=== PATIENT | female | born 1955 | race Caucasian/White ===

== ENCOUNTER → 2019-04-04 11:09 | Outpatient (CLI) | payer OTHER, SELFPAY ==
--- NOTE | 2019-04-04 | DI.MG.S_ITS ---
BILATERAL DIGITAL SCREENING MAMMOGRAM 3D/2D WITH CAD: 04/04/2019 CLINICAL: Routine screening. Family history of breast cancer. Comparison is made to exams dated: 09/30/2010 mammogram and 06/04/2007 mammogram - [facility]. The tissue of both breasts is heterogeneously dense. This may lower the sensitivity of mammography. Current study was also evaluated with a Computer Aided Detection (CAD) system. No significant masses, calcifications, or other findings are seen in either breast. There has been no significant interval change. IMPRESSION: NEGATIVE There is no mammographic evidence of malignancy. A 1 year screening mammogram is recommended. This exam was interpreted at Station ID: [id number]. NOTE: For mammograms, a report in lay terms will be sent to the patient. Approximately 15% of breast malignancies will not be visualized mammographically. In the management of a palpable breast mass, a negative mammogram must not discourage biopsy of a clinically suspicious lesion. Electronically Signed By: Dell damon/kavita:04/04/2019 13:14:03 letter sent: Normal Exam ACR BI-RADS Category 1: Negative [id number]
== END ==
PROVIDERS: PCP Obstetrics & Gynecology; Visit Provider Family Medicine
DX: Z12.31 Encounter for screening mammogram for malignant neoplasm of breast (principal); Z80.3 Family history of malignant neoplasm of breast
CPT/HCPCS: 77063; 77067

== ENCOUNTER → 2022-02-01 12:05 | Outpatient (CLI) | payer OTHER, SELFPAY | PROVIDERS: PCP Family Medicine; Visit Provider Obstetrics & Gynecology | DX: Z87.440 Personal history of urinary (tract) infections (principal); R35.0 Frequency of micturition | CPT/HCPCS: 87086; 87147 ==

== ENCOUNTER 2024-12-11 08:48 | Day surgery (SDC) | payer MEDICARE, SELFPAY ==
[2024-12-03 15:04] VITALS: BMI 22.6
[2024-12-11] VITALS (14 sets, daily range): BP systolic 112–147; BP diastolic 59–94; PULSE 74–86; RESP 12–30; TEMP 36–36.6; O2SAT 94–100; BMI 22.6
--- NOTE | 2024-12-11 | PATH_ITS ---
[facility] Accession Number: [id number] No. of containers..01 Tissue . 01 Material submitted: . uterus - UTERUS, CERVIX, RIGHT FALLOPIAN TUBE AND OVARY . 01 Diagnosis: UTERUS, CERVIX, RIGHT FALLOPIAN TUBE AND OVARY, HYSTERECTOMY AND RIGHT SALPINGO-OOPHORECTOMY: Cervix: Chronic cervicitis and atrophic changes. Uterine corpus: Atrophic endometrium, adenomyoma (0.7 cm), and leiomyomas (up to 0.5 cm). Right ovary: Benign cortical inclusion cysts, otherwise unremarkable. Right fallopian tube: Benign paratubal cyst, otherwise unremarkable. Negative for malignancy. MR 12/18/2024 0912 Local . 01 Electronically signed: . Shi Browne DO, Pathologist NPI- [id number] . 01 Gross description: . Received in formalin labeled with two patient identifiers and uterus, cervix, right fallopian tube and ovary, and consists of a uterus with attached cervix and attached right adnexa. The uterine corpus measures 5.5 x 4.5 x 2.9 cm (63 grams), and has a santos-pink, smooth, glistening serosal surface. The right parametrial tissue is inked red, and the left parametrial tissue is inked blue. . The attached cervix measures 3.0 x 2.5 x 1.0 cm and has a diffusely hemorrhagic endocervical mucosa with a 0.4 cm slit-like patent os. In addition, there is a 2.0 x x 1.1 x 0.3 cm additional portion of vaginal mcuosa at the posterior cervical aspect. This vaginal mucosa is santos, wrinked, and otherwise unremarkable. The specimen is opened to show a triangular endocervical canal that is free of exophytic lesions. The myometrium is red-santos, homogenous, and mesures up to 1.7 cm in thickness. There are three white, whorled, well-circumscribed nodules ranging from 0.5 to 0.7 cm in greatest dimension. Sectioning of the myometrial nodules shows an unremarkable cut surface without areas of cystic change or necrosis. There is a 3.1 x 1.7 cm blood-tinged, triangular, endometrial lining with an average depth of 0.2 cm. The mucosa with finely granular and free of exophytic lesions or polyps. . The attached right ovary mesures 3.2 x 1.5 x 1.0 cm and is surfaced by a smooth, white, glistening serosal surface. Sectioning of the ovary shows a white, homogenous, fibrotic unremarkable cut surface. The accompanying fimbriated fallopian tube measures 3.2 cm in length by 0.5 cm in diameter, and has a smooth glistening serosal surface with a 0.2 cm in greatest dimension clear, simple, unilocular, smooth-walled paratubal cyst. Sectioning of the tube shows a 0.2 cm stellate lumen. . Human Resource Assistant sections are submitted as follows: A1: Posterior cervix to include vaginal cuff. A2: Anterior cervix. A3: Full thickness endomyometrium posterior wall. A4: Full thickness endomyometrium anterior wall. A5: Human Resource Assistant sections of myometrial nodules. A6: Right ovary. A7: Right fallopian tube to include entire fimbriated end. ([id number]) /MICHAEL 12/13/2024 2008 Local . 01 Pathologist provided ICD-10: N81.2 . 01 CPT . 232573 Specimen Comment: A courtesy copy of this report has been sent to [phone] Performed at: [address] [address], [place], [place] [id number] MD Dell Perez MD Phone: [phone]
--- NOTE | 2024-12-11 09:14 | PM.PREOP ---
Pre-operative Note COVID-19 COVID-19 status: Not tested Interval Note History & Physical reviewed/Exam performed by Physician: Yes Changes to H&P: No
[2024-12-11 09:19] LABS: Add Manual Diff / Slide Review NO; Hematocrit 42.2 % (36-46); Hemoglobin 14.2 g/dL (12.0-16.0); Lymphocytes Absolute Auto 2200 /uL (1100-4500); Mean Corpuscular HGB Conc 33.8 % (30-36); Mean Corpuscular Hemoglobin 31.3 PG (26-34); Mean Corpuscular Volume 92.7 fL (80-100); Platelet Count 338 X10^3/uL (150-400)
[2024-12-11] MEDS: ACETAMINOPHEN 325 MG TABLET 975 MG PO (09:20)
[2024-12-11] MEDS: GABAPENTIN 600 MG TABLET PO (09:20)
[2024-12-11] MEDS: SCOPOLAMINE 1 PATCH TOP (09:21)
[2024-12-11] MEDS: PYRIDOXINE (VITAMIN B6) 50 MG TABLET 25 MG PO (09:21)
[2024-12-11 09:31] LABS: Blood Urea Nitrogen 8 mg/dL (7-17); Calcium 9.4 mg/dL (8.4-10.2); Carbon Dioxide 23 mmol/L (22-32); Chloride 105 mmol/L (98-107); Estimated Glomerular Filt Rate > 60 mL/min (>60); Glucose 89 mg/dL (70-99); Potassium 4.2 mmol/L (3.4-5.1); Sodium 138 mmol/L (137-145)
[2024-12-11 09:37] LABS: HEMOLYSIS 103 (0-50)
[2024-12-11] MEDS: LACTATED RINGERS 1,000 ML 42 ML IV ×3 (09:40→15:12)
--- NOTE | 2024-12-11 10:35 | SUR.OPER ---
Lithotomy on padded OR bed. [place] Pad Positioner under torso. Head on pillow, arms padded and tucked at sides. Legs secured in padded yellow fins stirrups. Final position approved by Dr. Carver.
--- NOTE | 2024-12-11 15:41 | P.OP_ITS ---
Operative Date/Time/Diagnoses Date of procedure: 12/11/24 Time of procedure: 10:30 Pre-op diagnosis: Cystocele, stage II Rectocele stage I Uterovaginal prolapse, incomplete Stress urinary incontinence Post-op diagnosis: same Procedure & Clinicians Procedure: Procedures Operation Date: 12/11/24 10:00 Actual Procedure Side Surgeon p total laparoscopic hysterectomy with right salpingo-oophorectomy, uterosacral vault ligament suspension Right John Carver MD s Anterior/Posterior Repair John Carver MD s mid-urethral sling with cystoscopy John Carver MD Indications: Patient has been diagnosed with significant pelvic organ prolapse for which she has been using a Gellhorn pessary for several years. Although it provides support the patient is tired of using the pessary and has opted to proceed with pelvic organ prolapse correction surgery in the form of total laparoscopic hysterectomy with right salpingo-oophorectomy, laparoscopic uterosacral vault suspension, anterior and posterior colporrhaphy with mid urethral sling placement and cystoscopy. She presents today for her scheduled surgery. Surgeon: John Carver Manager Field Service: Pipo Nolasco Anesthesia Type: General Operative Notes Findings: Stage 2-3 cystocele, stage 1-2 uterovaginal prolapse, stage 1-2 rectocele. Patulous bladder due to chronic cystocele with no evidence of bladder injury during TVT placement. Both ureteral orifices are seen to be actively jetting clear urine at the completion of the surgery. Closure Type: primary Specimen(s): right tube & ovary and uterus Applied: catheter and other (Vaginal pack) Estimated blood loss (mL): 125 Blood products transfused: none Procedure in detail: With the patient under satisfactory general anesthesia in the modified dorsal lithotomy position, the perineum, vagina, and abdomen were prepped and draped in the usual manner for her scheduled surgery. A pre-surgical safety time-out was then taken in accordance with [facility] OR protocols. After insertion of a Landa catheter, a weighted speculum was placed in the vagina and the anterior vaginal wall carefully visualized. The location of the mid urethral Sybil established by palpation and Allis clamps were used to put the vaginal mucosa on tension. The mucosa and submucosal tissues the infiltrated with 0.5% Marcaine with epinephrine. A 2 cm longitudinal incision under the mid urethra was then made with a 15. Blade and the dissection carried bilaterally with Metzenbaum scissors. A tension-free vaginal tape in its sheath were placed 1st on the right and then the left exiting through small incisions in the suprapubic area. The Landa bulb was deflated, cystoscopy performed, and no evidence of bladder injury was seen. The Landa catheter was then replaced. The TVT was then passed retropubically on both sides and once correct tensioning or lack thereof was in effect, the sheaths were removed along with the needles. Final placement of the TVT showed that there was no tension underneath the urethra on either side and the 2 cm incision was closed with 3-0 catgut suture in a running interlocking stitch. A longitudinal incision of the anterior vaginal mucosa was then performed after infiltration with 0.5% Marcaine with epinephrine. The dissection was carried out bilaterally and a two-layer plication with 0 Vicryl was then performed of the bladder muscularis and pubis cervical fascia was. The redundant portion of mucosa was then removed with Metzenbaum scissors and the linear incision was then closed with 0 Vicryl interrupted stitches. Patient was repositioned and preparations made for laparoscopy. The umbilicus was infiltrated with 0.5% Marcaine with epinephrine and a 1 cm transverse subumbilical incision was made. Veress needle was used to insufflate the abdomen with carbon dioxide and once insufflated, a 5 mm laparoscopic port was placed through the incision into the abdominal cavity. Correct placement of the trocar was confirmed and the abdomen was insufflated with carbon dioxide at that point. Two additional 5 mm ports were placed 1st on the left and then the right mid quadrants using a similar technique. Patient was placed in Trendelenburg in the pelvis thoroughly visualized with the findings as noted above. The left adnexa was absent surgically and using PowerSeal device, the dissection was carried down left side coagulating and dividing the broad ligament down to the level of the bladder reflection where a bladder flap was created. The uterine vessels were skeletonized on the left side and coagulated then divided with the PowerSeal device. Attention was then turned to the right side where the ovary and tube were seem to be normal for the postmenopausal state. The tube and ovary were elevated and the PowerSeal device was used to coagulate and divide the infundibulopelvic ligament on the right side. The dissection was then carried across the mesosalpinx, down the broad ligament on the right side, where at the level of the bladder reflection, the bladder flap was completed. Vessels were skeletonized on the right side and coagulated/divided with the PowerSeal device. Monopolar cutting current was then used to perform colpotomy along the anterior and posterior portions of the VCare colpotomy cup. The specimen was then removed from the abdominal cavity through the vaginal canal and submitted as a pathologic specimen. The vaginal cuff was then closed with 0 Vicryl [id number] stitches through the vagina starting 1st on the left side and then going to the right side followed by the midline portion of the vaginal cuff. Hemostasis was excellent and cuff integrity was also excellent. At that point laparoscopy was resumed and using 2-0 PDS suture, a total of 4 stitches were placed to bring the vaginal cuff up to the intact portion uterosacral ligaments on both sides. Cuff support was excellent and there was no bleeding noted in the pelvis. Cystoscopy was again performed and active flow of urinary jets were seen coming from both ureteral meatus. The perineum and introitus were incised/excised with a jannet shape incision and the midline incision of the posterior vaginal wall was carried out following infiltration of those tissues with 0.5% Marcaine with epinephrine. The mucosa was undermined on both sides out laterally to the levators which were plicated with 2 layers of 0 Vicryl interrupted. Support of the back wall was well restored, the redundant portion of vaginal mucosa was excised, in the posterior vaginal wall incision was closed with 0 Vicryl in a running interlock ing stitch. The perineum and distal vagina were then closed in layers with oriental orthodox of perineal body height using 0 Vicryl suture. Vaginal pack was then placed. The laparoscopy incisions were then closed after venting of the pneumoperitoneum. Those incisions were closed with 4-0 Monocryl in inverted interrupted stitches and appropriate dressings were applied. Patient was then awakened from anesthesia and transferred to the PACU for a period of observation after having tolerated the procedure well. Complications: none Post-operative Condition: stable Disposition: PACU Plan for aftercare: Routine postoperative care with follow-up planned for 2 weeks postop
[2024-12-11] MEDS: KETOROLAC 30 MG/ML VIAL IV ×2 (16:51→23:44)
[2024-12-11] MEDS: ONDANSETRON 4 MG/2 ML INJ IV ×2 (16:51→20:48)
[2024-12-11] MEDS: LACTATED RINGERS 1,000 ML 100 ML IV (16:51)
[2024-12-11] MEDS: CYCLOBENZAPRINE 10 MG TABLET 5 MG PO ×2 (17:47→20:44)
[2024-12-11] MEDS: GABAPENTIN 300 MG CAPSULE PO (20:42)
[2024-12-11] MEDS: DOCUSATE 100 MG CAPSULE 200 MG PO (20:43)
[2024-12-11] MEDS: ACETAMINOPHEN 325 MG TABLET 650 MG PO ×2 (20:45→23:45)
[2024-12-11] MEDS: HYDROmorphone 2 MG/ML SYRINGE IV (20:53)
[2024-12-12] MEDS: ONDANSETRON 4 MG/2 ML INJ IV ×2 (00:15→05:14)
[2024-12-12] MEDS: LACTATED RINGERS 1,000 ML 100 ML IV (00:39)
[2024-12-12 05:00] VITALS: BP 130/70; PULSE 74; RESP 17; TEMP 37.1; O2SAT 98
[2024-12-12] MEDS: KETOROLAC 30 MG/ML VIAL IV (05:14)
[2024-12-12] MEDS: ACETAMINOPHEN 325 MG TABLET 650 MG PO (05:15)
[2024-12-12 06:05] LABS: Add Manual Diff / Slide Review NO; Hematocrit 33.0 % (36-46); Hemoglobin 11.2 g/dL (12.0-16.0); Lymphocytes Absolute Auto 1900 /uL (1100-4500); Mean Corpuscular HGB Conc 34.1 % (30-36); Mean Corpuscular Hemoglobin 31.7 PG (26-34); Mean Corpuscular Volume 93.0 fL (80-100); Platelet Count 250 X10^3/uL (150-400)
[2024-12-12 09:00] VITALS: BP 144/82; PULSE 91; RESP 20; TEMP 37.2; O2SAT 95
[2024-12-12] MEDS: DOCUSATE 100 MG CAPSULE 200 MG PO ×2 (10:04→20:04)
--- NOTE | 2024-12-12 11:25 | CM.DANOTE ---
DCP Assessment Note: Pt is a 69yo female, resident of [facility], is admitted s/p Total Lap Hysterectomy. Pt lives in a house with , Vel. Pt's Primary Care Provider is Dr. Dung Holliday and insurance is Medicare and AARP. Reviewed chart and discussed with multidisciplinary team pt's medical status and initial discharge needs. Per RN, no needs identified - just awaiting discharge orders. Plan: Anticipating dc home with spouse on 12/12 or when medically cleared. CM team will follow closely for coordination of discharge plans. Daphne Jaffe T[employer] DESK TEAM MEMBER Discharge Planning/Care Management CM Discharge Assessment Start: 12/11/24 15:51 Freq: Status: Active Protocol: Document 12/12/24 09:22 MW (Rec: 12/12/24 09:23 MW Desktop) Discharge Planning Assessment Assigned Discharge JOLENE Serna Supervisor Publications Provider Dr. Dung Holliday Insurance Medicare Insurance Comment AARP (Secondary) DPOA/Assigned Vel Solomon, Spouse Designee Name Contact Information [phone] Advance Directives? No History Provided By Patient,Medical Record Has Patient been No admitted in last 30 days? Prior Living House Arrangements Comment [facility] Household Members spouse Type of Drives own vehicle transporation used prior to admit Independent with ADL Yes 's Is patient alert and Yes oriented? Discharge Plan Home Transportation Spouse Arrangement Referrals Initiated None needed Review Status In Process Please Provide Date 12/12/24 Initial DC Assessment Was Performed Next Review Type Continued Stay Revie
[2024-12-12] MEDS: TAMSULOSIN 0.4 MG CAPSULE PO (13:32)
--- NOTE | 2024-12-12 14:48 | PC.NURSE ---
pt voided 200cc with residual of greater than 800cc attempted I/O staight cath with resistance stopped and placed a 16fr without difficulty greater than 1300 light yellow urine out, left causey in place and called Dr. Carver. Plan for him to come up and see pt.
--- NOTE | 2024-12-12 15:16 | P.PN_ITS ---
Subjective Subjective Date Patient Seen: 12/12/24 Time Patient Seen: 15:16 Exam Vital Signs (past 8 hours): - 12/12/24 09:00 Temperature 99.0 F Pulse Rate 91 H Respiratory Rate 20 Blood Pressure 144/82 H Pulse Oximetry 95 Oxygen Flow Rate 0 Oxygen Delivery Method Room Air Oxygen Flow Rate 0 Const General: cooperative and comfortable Nutritional Appearance: average body habitus Orientation: alert and oriented x3 HENMT Head: normal to inspection, atraumatic and abrasion Ears: hearing grossly normal bilaterally Face and sinus: face symmetric Eyes General: appearance normal, both eyes and all related structures Conjunctivae: conjunctivae normal Sclera: sclerae normal EOM: EOM intact bilaterally Neck Neck: normal visual inspection Resp Effort & Inspection: normal respiratory effort and able to speak in complete sentences Auscultation: clear to auscultation bilaterally Cardio Rate: regular rate Rhythm: regular rhythm Heart Sounds: S1 normal, S2 normal and no murmurs GI Inspection: normal to inspection and incision (Surgical dressings clean and dry) Palpation: soft, no hepatosplenomegaly and tender (Mild, diffuse postsurgical tenderness) Auscultation: hypoactive bowel sounds External Female Exam: other (No significant bleeding noted) Extrem General: no calf tenderness Psych Appearance: grossly normal Mental Status: mental status grossly normal Speech and Movement: speech and movement normal Mood: congruent mood Affect: normal affect Attitude: cooperative Thought Process: normal Thought Content: normal Judgment: judgment good Objective Labs 12/12/24 05:59 12/10/24 09:15 Labs: Laboratory Results - last 24 hr 12/12/24 05:59 WBC 12.4 H D RBC 3.55 L Hgb 11.2 L Hct 33.0 L MCV 93.0 MCH 31.7 MCHC 34.1 RDW 13.6 Plt Count 250 Neut % (Auto) 75.9 H Lymph % (Auto) 14.9 L Liberty % (Auto) 8.6 Eos % (Auto) 0.1 L Baso % (Auto) 0.5 Neut # (Auto) 9400 H Lymph # (Auto) 1900 [place] # (Auto) 1100 H Eos # (Auto) 0 Baso # (Auto) 100 PFSH Medical History (Updated 11/08/24 @ 00:00 by ) Hearing loss Rosacea (~1999) Actinic keratosis (~2014) Post herpetic neuralgia (~2000) Mild cognitive disorder (~2020) Back pain (~2010) Ankle fracture (~2015) Measles Chicken pox (~1959) Early menopause Ovarian cyst (~2004) Hypertension (~2008) Hemorrhoids (~2004) Surgical History (Updated 02/16/22 @ 19:44 by Shikha Deshpande) Anesthesia Hx of removal of ovary (~2004) History of back surgery (~2014) Family History (Updated 02/16/22 @ 19:46 by Shikha Deshpande) Father No problems noted. Mother Cancer Grandmother Cancer Grandmother Parkinson's disease Social History household members: spouse Smoking Status: Never smoker alcohol intake: former Assessment & Plan Post-op Postoperative Procedures: Procedures Operation Date: 12/11/24 10:00 Actual Procedure Side Surgeon p total laparoscopic hysterectomy with right salpingo-oophorectomy, uterosacral vault ligament suspension Right John Carver MD s Anterior/Posterior Repair John Carver MD s mid-urethral sling with cystoscopy John Carver MD Postoperative day: 1 Postoperative status: doing well and urinary retention Postoperative status narrative: Patient did reasonably well overnight and catheter removed along with vaginal pack late morning. Patient able to void 200 cc but initial postvoid residual was measured at 700 cc. Catheter placed subsequently and 1300 cc of clear urine obtained. Will leave catheter in overnight again in attempt removal/trial of voiding tomorrow morning. Postoperative plan: routine post-op care and see orders Postoperative plan narrative: Catheter replaced and will give a trial of voiding again in the morning in hopes she is able to void spontaneously. In addition will add Flomax and bethanechol overnight in preparation for her 2nd voiding trial. Time Spent With Patient Time with patient: 15-24 minutes Quality VTE Deep Vein Thrombosis/Pulmonary Embolism Present on Admission: No
[2024-12-12] MEDS: BETHANECHOL CHLORIDE 5 MG TABLET PO ×2 (16:31→20:05)
[2024-12-12 19:00] VITALS: BP 142/75; PULSE 82; RESP 18; TEMP 37.1; O2SAT 92
[2024-12-12] MEDS: CYCLOBENZAPRINE 10 MG TABLET 5 MG PO (20:04)
[2024-12-12] MEDS: GABAPENTIN 300 MG CAPSULE PO (20:05)
[2024-12-13] MEDS: BETHANECHOL CHLORIDE 5 MG TABLET PO ×2 (04:00→08:52)
[2024-12-13] MEDS: CYCLOBENZAPRINE 10 MG TABLET 5 MG PO ×2 (04:01→13:03)
[2024-12-13 08:00] VITALS: BP 149/76; PULSE 70; RESP 15; TEMP 36.9; O2SAT 97
[2024-12-13] MEDS: TAMSULOSIN 0.4 MG CAPSULE PO (08:51)
[2024-12-13] MEDS: DOCUSATE 100 MG CAPSULE 200 MG PO (08:52)
--- NOTE | 2024-12-13 10:33 | CM.DPNOTE ---
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 Landa dc'd, pending voiding should dc today. no CM needs likely P: dc today home with family support and OP f/u. no CM needs at this time will continue to follow in case any should arise JOLENE Rios
--- NOTE | 2024-12-13 12:37 | P.DS_ITS ---
History of Present Illness History of Present Illness Date Patient Seen: 12/13/24 Time Patient Seen: 12:37 Chief complaint: Lap Total Hysterectomy Robot Assisted Discharge Providers Provider Date of admission: 12/11/2024 Discharge Date: 12/13/24 Primary care physician: Dung Holliday MD Discharge provider: John Carver MD Summary Hospital Course Discharge Diagnosis: Cystocele, stage II Rectocele stage I-II Uterovaginal prolapse, incomplete, Stress urinary incontinence Postop Urinary retention Status post total laparoscopic hysterectomy with laparoscopic uterosacral vault suspension, anterior and posterior repair, mid urethral sling placement with cystoscopy Hospital Course: Vicky was admitted on 12/11/2024 and underwent an uneventful total laparoscopic hysterectomy with right salpingo oophorectomy, laparoscopic uterosacral ligament vault suspension, anterior and posterior repair, and mid urethral sling placement with cystoscopy. Full details of the procedure well summarized on my operative note of that date. Following surgery she has done extremely well with prompt return of bowel function, she is ambulating independently, tolerating a regular diet, and her pain is well-controlled with oral pain medications. Unfortunately a trial of voiding was unsuccessful on the 1st postoperative day and she required a 2nd night in the hospital. A 2nd voiding trial was successful with a postvoid residual of less than 150 cc. She will be discharged at this time to home in an afebrile normotensive condition after counseling regarding precautionary symptoms, limitations of activity, medications, and plans for follow-up which will be in 2 weeks or as needed. Medications at discharge will include oxycodone 5 mg every 4-6 hours as needed for pain, dispense 15 with no refills, Cipro 500 mg p.o. b.i.d. x5 days for UTI prophylaxis following catheterization, Flomax 0.4 mg b.i.d. times 10 days, and bethanechol 5 mg b.i.d. times 10 days. She was also discharged with at [facility] catheter supplies and instructions should she have difficulty voiding again once she gets home. Status at Discharge Cognitive/behavioral status at discharge: oriented Functional status at discharge: independent ambulation Overall status at discharge: patient is progressing back to baseline Time Spent with Patient Time spent: Less than 30 minutes Exam Vital Signs (past 8 hours): - 12/13/24 08:00 Temperature 98.4 F Pulse Rate 70 Respiratory Rate 15 Blood Pressure 149/76 H Pulse Oximetry 97 Oxygen Flow Rate 0 Oxygen Delivery Method Room Air Oxygen Flow Rate 0 Const General: cooperative and comfortable Nutritional Appearance: average body habitus Orientation: alert and oriented x3 HENMT Head: normal to inspection, atraumatic and abrasion Ears: hearing grossly normal bilaterally Face and sinus: face symmetric Eyes General: appearance normal, both eyes and all related structures Conjunctivae: conjunctivae normal Sclera: sclerae normal EOM: EOM intact bilaterally Neck Neck: normal visual inspection Resp Effort & Inspection: normal respiratory effort and able to speak in complete sentences Auscultation: clear to auscultation bilaterally Cardio Rate: regular rate Rhythm: regular rhythm Heart Sounds: S1 normal, S2 normal and no murmurs GI Inspection: normal to inspection and incision (Surgical dressings clean and dry) Palpation: soft, no hepatosplenomegaly and tender (Mild, diffuse postsurgical tenderness) External Female Exam: other (No significant bleeding noted) Extrem General: no calf tenderness Psych Appearance: grossly normal Mental Status: mental status grossly normal Speech and Movement: speech and movement normal Mood: congruent mood Affect: normal affect Attitude: cooperative Thought Process: normal Thought Content: normal Judgment: judgment good Objective Labs 12/12/24 05:59 12/10/24 09:15 [facility] Medical History (Updated 11/08/24 @ 00:00 by ) Hearing loss Rosacea (~1999) Actinic keratosis (~2014) Post herpetic neuralgia (~2000) Mild cognitive disorder (~2020) Back pain (~2010) Ankle fracture (~2015) Measles Chicken pox (~1959) Early menopause Ovarian cyst (~2004) Hypertension (~2008) Hemorrhoids (~2004) Surgical History (Updated 02/16/22 @ 19:44 by Shikha Deshpande) Anesthesia Hx of removal of ovary (~2004) History of back surgery (~2014) Family History (Updated 02/16/22 @ 19:46 by Shikha Deshpande) Father No problems noted. Mother Cancer Grandmother Cancer Grandmother Parkinson's disease Social History household members: spouse Smoking Status: Never smoker alcohol intake: former Discharge Assessment & Plan Assessment and Plan Assessment: Cystocele, stage II Rectocele stage I-II Uterovaginal prolapse, incomplete, Stress urinary incontinence Postop Urinary retention Status post total laparoscopic hysterectomy with laparoscopic uterosacral vault suspension, anterior and posterior repair, mid urethral sling placement with cystoscopy Plan of Treatment: Continue routine postoperative care with follow-up scheduled for 2 weeks postop. Discharge Plan Discharge Plan Patient Disposition: Home Provider Discharge Comment: Please review the written instructions you received when you were discharged from the hospital. Your follow-up visit as scheduled for 2 weeks after surgery and I look forward to seeing you then. If however in the meanwhile you have any issues, concerns, or questions, please contact me either through the office phone at [phone], or via the patient portal. Discharge orders & Medications Discharge Orders: Discharge (Order); Ordered 12/13/24 Ordered By: John Carver Prescriptions: New tamsulosin 0.4 mg Capsule 0.4 mg PO DAILY 10 Days Qty: 10 0RF bethanechol chloride 5 mg Tablet 5 mg PO Q6H Qty: 40 0RF oxycodone 5 mg Tablet 10 mg PO Q6H PRN (Reason: Pain, Moderate (4-6)) Qty: 12 0RF ciprofloxacin HCl [Cipro] 500 mg tablet 500 mg PO Q12H Qty: 10 0RF Continued hydrocodone-acetaminophen 5-325 mg tablet 1 - 2 tab PO Q6H PRN (Reason: severe pain) metoprolol succinate 25 mg tablet extended release 24 hr 25 mg PO DAILY cyclobenzaprine 5 mg tablet 5 mg PO 3XD PRN (Reason: muscle spasm) amlodipine 10 mg tablet 10 mg PO DAILY gabapentin 300 mg capsule 300 mg PO BEDTIME Follow up/Referrals: Dung Holliday MD [Primary Care Provider, Family Practice] John Carver MD [Physician, [facility]] Diet/Activity/Treatments Diet: Diet as Tolerated Activity: As tolerated Other treatments: [id number] Tylenol and/or ibuprofen may be used as needed for additional pain relief. [id number] stool softeners and/or MiraLax may be used as needed for constipation. Skin/Wound/Dressing Care Report to your healthcare provider any signs of infection, such as:: chills, fever, increased pain, unusual drainage and unusual redness Dressing: Dressings should be removed on the morning of 12/13/2024 Visit Report/Discharge Packet Instructions: DI for Hysterectomy, DI for Laparoscopy Stand Alone Forms: Patient Portal/API, Surgery Discharge Print Language: French Discharge Data Primary Care Provider: Dung Holliday Attending Provider: John Carver VTE Deep Vein Thrombosis/Pulmonary Embolism Present on Admission: No IH PROFEE Charge Codes Discharge inpatient/observation: [id number]
--- NOTE | 2024-12-13 13:55 | PC.NURSE ---
Day shift: Left unit at approx 1340. 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 Dressings remain CDI. Passed the voiding trial and not going home with [facility]. Spouse is driving them home to [place]. Paperwork signed and all questions answered. MEdicated for pain prior to d/c. Pain has been well controlled per MAY. 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
== END 2024-12-13 13:30 | disposition home or self-care (01) ==
LOC: OR 08:50 → AC 15:50
PROVIDERS: Nurse Anesthetist, Certified Registered; PCP Family Medicine; Referring Provider Obstetrics & Gynecology; Visit Provider Obstetrics & Gynecology
PROC: 0UT94ZZ Resection of Uterus, Percutaneous Endoscopic Approach (ICD-10-PCS; CPT 57425; principal; 2024-12-11 10:00)
PROC: (CPT 57425; 2024-12-11 10:00)
PROC: 0TSD0ZZ Reposition Urethra, Open Approach (ICD-10-PCS; CPT 57425; 2024-12-11 10:00)
DX: N81.2 Incomplete uterovaginal prolapse (principal); N39.3 Stress incontinence (female) (male); N72 Inflammatory disease of cervix uteri; N80.03 Adenomyosis of the uterus; D25.9 Leiomyoma of uterus, unspecified; N83.291 Other ovarian cyst, right side; N83.8 Other noninflammatory disorders of ovary, fallopian tube and broad ligament
CPT/HCPCS: 57425; 57288; 57260; 58571; 36415; 80048; 85025; C1771; J0687; J0689; J1100; J1171; J1885; J2250; J2405; J2704; J3010; J3490; J7120